=== PATIENT | female | born 1990 | race American Indian/Alaskan Native ===

== ENCOUNTER 2016-11-02 14:00 | Emergency (ER) | payer OTHER ==
--- NOTE | 2016-11-02 14:45 | Emergency Department Report ---
Entered by JOHN CARRASCO, acting as scribe for IBETH BACA NP. Chief Complaint: Abdominal Pain Stated Complaint: ABD PAIN Time Seen by Provider: 11/02/16 14:39 - HPI History of Present Illness: 26 year old female who is non toxic appearing and in no acute distress presents with c/o diffuse abdominal pain with associated N/V x 1 day. Emesis is food contents, non bilious, non bloody. Denies fever, epigastric pain, diarrhea, chest pain, shortness of breath. - ROS Review of Systems: Reports diffuse abdominal pain, N/V. Denies fever, epigastric pain, diarrhea, blood present in emesis, chest pain, SOB. - Exam Vital Signs: Vital Signs 11/02/16 14:08 Temperature 99.8 F H Pulse Rate 108 H Respiratory 18 Rate Blood Pressure 145/90 O2 Sat by Pulse 100 Oximetry Physical Exam: Constitutional: Non toxic appearing, NAD. Patient is actively vomiting in exam room. Emesis consists of food contents, no blood. Abdomen: Abdomen is non-distended, soft with diffuse abdominal tenderness to palpation. MSE screening note: Focused history and physical exam performed. Due to findings the following was ordered: CBC, CMP, lipase, amylase, UA, serum HCG qualitative ED Disposition for MSE Condition: Stable Instructions: Abdominal Pain (ED) This documentation as recorded by the scribe,JOHN CARRASCO,accurately reflects the service I personally performed and the decisions made by KEVEN chapa MARTIN, NP.
[2016-11-02 15:16] LABS: Hematocrit 41.8 % (30.3-42.9); Hemoglobin 13.8 gm/dl (10.1-14.3); Mean Corpuscular HGB Conc 33 % (30-34); Mean Corpuscular Hemoglobin 34 pg (28-32); Mean Corpuscular Volume 102 fl (79-97); Red Blood Count 4.09 M/mm3 (3.65-5.03); Red Cell Distribution Width 15.5 % (13.2-15.2); White Blood Count 13.2 K/mm3 (4.5-11.0)
[2016-11-02 15:39] LABS: Alanine Aminotransferase 89 units/L (7-56); Albumin 3.4 g/dL (3.9-5); Albumin/Globulin Ratio 0.9 %; Alkaline Phosphatase 199 units/L (35-129); Amylase 64 units/L (27-131); Anion Gap 18 mmol/L; BUN/Creatinine Ratio 16.66; Blood Urea Nitrogen 10 mg/dL (7-17); Calcium 8.7 mg/dL (8.4-10.2); Carbon Dioxide 20 mmol/L (22-30); Chloride 103.4 mmol/L (98-107); Glucose 84 mg/dL (65-100); Lipase 21 units/L (13-60); Potassium 4.2 mmol/L (3.6-5.0); Sodium 137 mmol/L (137-145); Total Protein 7.1 g/dL (6.3-8.2)
[2016-11-02] MEDS ORDERED: ZOFRAN ODT PO ONE (16:29)
[2016-11-02 16:42] LABS: Basophils % (Manual) 0 % (0.0-1.8); Blastocytes % (Manual) 0 %; Eosinophils % (Manual) 0 % (0.0-4.3); Total Cells Counted Percent 0
[2016-11-02 16:43] LABS: Platelet Estimate Appears Decreased
[2016-11-02 16:44] LABS: Anisocytosis Few; Diff Status Complete; Platelet Count 66 K/mm3 (140-440); Poikilocytosis Few; Target Cells Rare
--- NOTE | 2016-11-02 21:04 | Admit Criteria Form ---
Admission Criteria Documentation: FEBRILE ILLNESS, WITHOUT FOCAL INFECTION Clinical Indications for Admission to Inpatient Care (Place 'X' for any and all applicable criteria): Admission is indicated for ANY ONE of the following (1)(2)(3): [ ] I. Bacteremia [ ]II. Suspected or identified specific infection requiring hospitalization (eg, meningitis, endocarditis) [ ]III. Hemodynamic instability [ ]IV. Altered mental status [ ]V. Failure or unavailability of outpatient antimicrobial treatment [ ]. Hypoxemia [ ]VII. Seizures [ ]VIII. High-risk febrile neutropenia [ ]IX. Need for parenteral antibiotic in patient who is likely to abuse vascular access device (eg, injection drug user) [A](7) [ ]X. Temperature greater than 104.9 degrees F (40.5 degrees C) (oral) [X ]XI. Inpatient admission required rather than observation care because of ANY ONE of the following: [ ]a) Specific infection identified that is too severe for outpatient treatment or observation care trial [ ]b) Metabolic disorder (eg, hypoglycemia, hyperglycemia, metabolic acidosis) that is severe or persistent [ ]c) Temperature greater than 103.1 degrees F (39.5 degrees C) ( oral) that is not responsive to observation care treatment [ ]d) IV fluid to replace significant ongoing (eg, for over 24 hours) losses (> 3 L/m2 per day) [ ]e) Supplemental oxygen or respiratory treatments for over 24 hours that is performable only in acute inpatient setting [ ]f) Parenteral nutrition regimen need that must be implemented on inpatient basis [ ]g) Strict or protective (eg, laminar flow) isolation [ X]h) Other condition, treatment or monitoring requiring inpatient admission Extended stay beyond goal length of stay may be needed for(1)(3) [ ]a) Sepsis or septic shock(22) [ ]b) Positive blood cultures [ ]c) Insufficient oral intake [ ]d) High-risk febrile neutropenia(29)(30) [ ]e) Continued fever and clinical instability [ ]f) Clinically active comorbid illness (e.g,heart failure, renal failure , diabetes) The original [employer] [employer] content created by [facility] [employer] has been revised. The portions of the content which have been revised are identified through the use of italic text or in bold, and [facility] [employer] has neither reviewed nor approved the modified material. All other unmodified content is copyright [facility]. Please see references footnoted in the original [facility] edition 2016
[2016-11-02 21:12] LABS: Bacteria,Urine 4+ /HPF (Negative); Bilirubin,Urine NEG (Negative); Blood,Urine NEG (Negative); Ketones,Urine NEG (Negative); Leukocyte Esterase,Urine TR (Negative); Mucus,Urine 3+ /HPF; Nitrite,Urine NEG (Negative)
[2016-11-02] MEDS ORDERED: DUONEB 0.5 MG-3 MG/3 ML SOLN IH ONE (21:39)
[2016-11-02] MEDS ORDERED: MORPHINE IV ONE (21:39)
[2016-11-02] MEDS ORDERED: TORADOL IV ONE (22:09)
--- NOTE | 2016-11-02 22:10 | Emergency Department Report ---
HPI - General Chief Complaint: Abdominal Pain Time Seen by Provider: 11/02/16 20:36 - HPI HPI: This is a 18-year-old Afro-Indian female who presents to the emergency department via EMS from home with complaint of a one-day history of generalized abdominal pain, pelvic pain, nausea or vomiting, generalized body aches, chills and subjective fever. She is not taken anything for symptoms prior to presentation. No recent travel or sick contacts at home. She has a past medical history of HPV and hepatitis C. She does not currently have a primary care doctor. She denies any vaginal discharge, vaginal bleeding, dysuria or rash. ED Past Medical Hx - Past Medical History Hx Asthma: Yes Additional medical history: morbid obesity,allergies,HPV,hepatitis C - Surgical History Past Surgical History?: No - Social History Smoking Status: Never Smoker Substance Use Type: None - Medications Home Medications: Home Medications Medication Instructions Recorded Confirmed Last Taken Type ALBUTEROL NEB's [Proventil 0.083% 1 vial INHALATION PRN PRN 11/02/16 11/02/16 History NEBS] Albuterol Sulfate [Ventolin HFA] 1 puff PO PRN PRN 11/02/16 11/02/16 11/02/16 History Fluticasone/Salmeterol [Advair 1 puff PO PRN PRN 11/02/16 11/02/16 Unknown History Diskus 250-50 mcg] Loratadine [Claritin] 1 tab PO QDAY PRN 11/02/16 11/02/16 11/02/16 History Montelukast [Singulair] 1 tbsp PO QDAY 11/02/16 11/02/16 11/02/16 History Levofloxacin [Levaquin] 750 mg PO QDAY #7 tablet 11/03/16 Unknown Rx metroNIDAZOLE [Flagyl] 500 mg PO Q12HR #14 tab 11/03/16 Unknown Rx traMADol [Ultram] 50 mg PO Q6HR PRN #16 tablet 11/03/16 Unknown Rx ED Review of Systems ROS: Stated complaint: ABD PAIN Other details as noted in HPI Comment: All other systems reviewed and negative Constitutional: chills, fever Eyes: denies: eye pain, eye discharge, vision change ENT: denies: ear pain, throat pain Respiratory: shortness of breath. denies: cough Cardiovascular: denies: chest pain, palpitations Gastrointestinal: abdominal pain, nausea, vomiting Genitourinary: denies: urgency, dysuria, discharge Musculoskeletal: back pain, myalgia Skin: denies: rash, lesions Neurological: denies: weakness, numbness Physical Exam - Physical Exam Vital Signs: Vital Signs 11/02/16 11/02/16 11/02/16 14:08 19:35 20:53 Temperature 99.8 F H 100.6 F H 100.8 F H Pulse Rate 108 H 110 H 81 Respiratory 18 18 18 Rate Blood Pressure 145/90 150/95 Blood Pressure 118/64 [Left] O2 Sat by Pulse 100 99 98 Oximetry Physical Exam: GENERAL: The patient is well-developed well-nourished. She is uncomfortable but in no acute distress. HEENT: Normocephalic. Atraumatic. Extraocular motions are intact. Patient has moist mucous membranes. Pupils equal reactive to light bilaterally. NECK: Supple. Trachea is midline. CHEST/LUNGS: Clear to auscultation. There is no respiratory distress noted. HEART/CARDIOVASCULAR: Regular. There is no tachycardia. There is no gallop rub or murmur. ABDOMEN: Abdomen is soft. There is generalized tenderness to palpation of the abdomen. No guarding or rebound tenderness. No peritoneal signs with heel stike. Morbid obesity. Patient has normal bowel sounds. There is no abdominal distention. SKIN: Skin is warm and dry. NEURO: The patient is awake but is not cooperative and remains nonverbal. The patient has no focal neurologic deficits. Normal speech. MUSCULOSKELETAL: There is no tenderness or deformity. There is no limitation range of motion. There is no evidence of acute injury. ED Course Vital Signs 11/02/16 11/02/16 11/02/16 14:08 19:35 20:53 Temperature 99.8 F H 100.6 F H 100.8 F H Pulse Rate 108 H 110 H 81 Respiratory 18 18 18 Rate Blood Pressure 145/90 150/95 Blood Pressure 118/64 [Left] O2 Sat by Pulse 100 99 98 Oximetry ED Medical Decision Making - Lab Data Result diagrams: 11/02/16 15:02 11/02/16 15:02 - Radiology Data Radiology results: report reviewed, image reviewed interpreted by me: Chest x-ray did not show any acute process. Heart is normal shape and size. No effusions. No pneumothorax. No signs of pneumonia seen. CT of the abdomen and pelvis with IV contrast shows cirrhotic changes of the liver. No focal hepatic lesion. Mild enlargement of liver and spleen. Multiple collateral vessels in the upper abdomen. Borderline enlarged lymph nodes in the upper abdomen which may be reactive secondary to cirrhosis. Cholelithiasis. Moderate gallbladder wall thickening which may be reactive secondary to cirrhosis. Inflammation of gallbladder cannot be excluded. No biliary dilation. Wall thickening of the right colon, transverse colon and ascending colon concerning for colitis. No bowel obstruction. - Medical Decision Making 26-year-old female presents the emergency department with complaint of generalized abdominal discomfort, nausea, vomiting. Patient has a history of hepatitis C. She was given some pain medication and IV fluid resuscitation. Her labs show some elevation in the LFTs and bilirubin. She presents with a low -grade fever. 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 A CT of the abdomen and pelvis was done with IV contrast that shows cirrhosis, cholelithiasis without cholecystitis and some colitis. She was given some Levaquin and Flagyl by IV. The CT also read as a bladder wall thickening and some enlargement of the gallbladder that is most likely secondary to her cirrhosis. However a right upper quadrant dedicated ultrasound will be done to make sure that there is not cholecystitis. The patient is discharged home. She is set up with a referral for gastroenterology , pain medication, antibiotics. She understands to return to the emergency department if there is any intractable abdominal pain, intractable fever or vomiting or any acute distress. The ultrasound be checked by my colleague, Dr Gallo, and if no surgical intervention is necessary she will be discharged home as planned. - Differential Diagnosis Colitis, Cholelithiasis, Cholecystitis, Hepatitis, pancreatitis Critical Care Time: No Critical care attestation.: If time is entered above; I have spent that time in minutes in the direct care of this critically ill patient, excluding procedure time. ED Disposition Clinical Impression: Colitis, Biliary colic Cirrhosis Qualifiers: Hepatic cirrhosis type: unspecified hepatic cirrhosis Ascites presence: without ascites Qualified Code(s): K74.60 - Unspecified cirrhosis of liver Cholelithiasis Qualifiers: Cholelithiasis location: gallbladder Cholecystitis presence: without cholecystitis Biliary obstruction: without biliary obstruction Qualified Code(s) : K80.20 - Calculus of gallbladder without cholecystitis without obstruction Abdominal pain Qualifiers: Abdominal location: generalized Qualified Code(s): R10.84 - Generalized abdominal pain Disposition: DISCHARGED TO HOME OR SELFCARE Is pt being admited?: No Condition: Stable Additional Instructions: Please follow-up with a primary care doctor as soon as possible. It is also recommended that she follow-up with a communications technician or a garment parts cutter hand as soon as possible. Return to the emergency department with any worsening of your symptoms or any acute distress. You've been prescribed a medication that is sedating. Therefore this medication cannot be mixed with alcohol, or taken prior to driving, working, or being responsible for children. One of the antibiotics that you have been written for, Flagyl, has a very bad reaction with alcohol. If you drink any alcohol while taking this medication you have significant nausea, vomiting and discomfort. Prescriptions: Levofloxacin [Levaquin] 750 mg PO QDAY #7 tablet metroNIDAZOLE [Flagyl] 500 mg PO Q12HR #14 tab traMADol [Ultram] 50 mg PO Q6HR PRN #16 tablet PRN Reason: Pain Referrals: PRIMARY MD GITA [Primary Care Provider] - 3-5 Days DYLAN NDIAYE MD [Staff Physician] - 3-5 Days Forms: Work/School Release Form(ED)
[2016-11-03] MEDS ORDERED: NACL ONE (00:03)
--- NOTE | 2016-11-03 02:13 | Cat Scan Report ---
FINAL REPORT EXAM: CT ABDOMEN PELVIS W CON HISTORY: abd pain COMPARISON: None available. Additional sagittal and coronal reformatted images were obtained. TECHNIQUE: Contiguous axial images were obtained. 100 cc Omnipaque [id number]. Administration of IV contrast given per institution protocol. Images submitted for interpretation. Additional sagittal and coronal reformatted images were obtained. FINDINGS: Nonspecific linear densities at the lung bases likely reflecting atelectasis. Minimal edema cannot be excluded. Cirrhotic changes of the liver. Nodular contour of the liver. Liver is enlarged measuring 25 centimeters. Dilatation of the portal vein which is patent measuring 1.5 centimeters in diameter. Cholelithiasis. Wall thickening of the gallbladder. This may be reactive secondary to cirrhosis. Inflammation of gallbladder cannot be excluded. No biliary dilatation. Mild enlargement of spleen measuring 14 centimeters. Pancreas and adrenal glands are grossly unremarkable. There are collateral vessels within upper abdomen. Borderline enlarged upper abdominal lymph nodes suspected to be reactive. . No solid renal lesion. No hydronephrosis. Aorta and IVC normal in caliber. Urinary bladder, uterus, ovaries are grossly unremarkable. Small amount of free fluid in the pelvis. No loculated collection or free air. Several fluid-filled small bowel loops. Diffuse wall thickening of the majority the colon with sparing of the rectosigmoid colon concerning for colitis. Bony pelvis and lumbar spine are grossly intact. The appendix is not visualized IMPRESSION: Cirrhotic changes of the liver. No focal hepatic lesion. Mild enlargement of the liver and spleen. Multiple collateral vessels in the upper abdomen. Borderline enlarged lymph nodes in the upper abdomen which may be reactive secondary to cirrhosis. Cholelithiasis. Moderate gallbladder wall thickening which may be reactive secondary to cirrhosis. Inflammation of gallbladder cannot be excluded. No biliary dilatation. Wall thickening of the right colon, transverse colon descending colon concerning for colitis. No bowel obstruction.
[2016-11-03] MEDS ORDERED: MORPHINE IV ONE (02:23)
[2016-11-03] MEDS ORDERED: LEVAQUIN 750MG/150ML 750 MG/150 ML BAG IV ONE (02:31)
[2016-11-03] MEDS ORDERED: FLAGYL 500 MG/100 ML 500 MG/100 ML BAG IV ONE (03:00)
--- NOTE | 2016-11-03 03:25 | Ultrasound Report ---
FINAL REPORT EXAM: US ABDOMEN LIMITED HISTORY: abd pain COMPARISON: CT of the abdomen and pelvis from the same date. TECHNIQUE: Several real-time grayscale and color Doppler images were obtained. FINDINGS: Nodular contour of the liver compatible cirrhosis seen on earlier CT. No focal hepatic lesion is demonstrated. Right kidney measures 10.5 centimeters in length. No hydronephrosis. Cholelithiasis. Gallbladder wall thickening. Small amount of pericholecystic fluid. Gallbladder wall thickness 10 millimeters. No biliary dilatation. Common bile duct measures 5 millimeters. IMPRESSION: Cholelithiasis with gallbladder wall thickening concerning for acute cholecystitis in the correct clinical setting. No biliary dilatation. Cirrhotic changes of the liver.
[2016-11-03 03:37] VITALS: BP 116/63
--- NOTE | 2016-11-03 05:37 | Emergency Department Report ---
HPI - General Chief Complaint: Abdominal Pain Time Seen by Provider: 11/02/16 20:36 ED Past Medical Hx - Past Medical History Hx Asthma: Yes Additional medical history: morbid obesity,allergies,HPV,hepatitis C - Surgical History Past Surgical History?: No - Social History Smoking Status: Never Smoker Substance Use Type: None - Medications Home Medications: Home Medications Medication Instructions Recorded Confirmed Last Taken Type ALBUTEROL NEB's [Proventil 0.083% 1 vial INHALATION PRN PRN 11/02/16 11/02/16 History NEBS] Albuterol Sulfate [Ventolin HFA] 1 puff PO PRN PRN 11/02/16 11/02/16 11/02/16 History Fluticasone/Salmeterol [Advair 1 puff PO PRN PRN 11/02/16 11/02/16 Unknown History Diskus 250-50 mcg] Loratadine [Claritin] 1 tab PO QDAY PRN 11/02/16 11/02/16 11/02/16 History Montelukast [Singulair] 1 tbsp PO QDAY 11/02/16 11/02/16 11/02/16 History Levofloxacin [Levaquin] 750 mg PO QDAY #7 tablet 11/03/16 Unknown Rx metroNIDAZOLE [Flagyl] 500 mg PO Q12HR #14 tab 11/03/16 Unknown Rx traMADol [Ultram] 50 mg PO Q6HR PRN #16 tablet 11/03/16 Unknown Rx ED Review of Systems ROS: Stated complaint: ABD PAIN Other details as noted in HPI Constitutional: chills, fever Eyes: denies: eye pain, eye discharge, vision change ENT: denies: ear pain, throat pain Respiratory: shortness of breath. denies: cough Cardiovascular: denies: chest pain, palpitations Gastrointestinal: abdominal pain, nausea, vomiting Genitourinary: denies: urgency, dysuria, discharge Musculoskeletal: back pain, myalgia Skin: denies: rash, lesions Neurological: denies: weakness, numbness Physical Exam - Physical Exam Vital Signs: Vital Signs 11/02/16 11/02/16 11/02/16 14:08 19:35 20:53 Temperature 99.8 F H 100.6 F H 100.8 F H Pulse Rate 108 H 110 H 81 Pulse Rate [ Anterior Bilateral Throughout] Respiratory 18 18 18 Rate Respiratory Rate [Anterior Bilateral Throughout] Blood Pressure 145/90 150/95 Blood Pressure 118/64 [Left] O2 Sat by Pulse 100 99 98 Oximetry 11/02/16 11/02/16 11/03/16 22:38 22:48 03:37 Temperature 98.8 F Pulse Rate 98 H Pulse Rate [ 82 81 Anterior Bilateral Throughout] Respiratory 18 Rate Respiratory 18 16 Rate [Anterior Bilateral Throughout] Blood Pressure Blood Pressure 116/63 [Left] O2 Sat by Pulse 100 Oximetry ED Course Vital Signs 11/02/16 11/02/16 11/02/16 14:08 19:35 20:53 Temperature 99.8 F H 100.6 F H 100.8 F H Pulse Rate 108 H 110 H 81 Pulse Rate [ Anterior Bilateral Throughout] Respiratory 18 18 18 Rate Respiratory Rate [Anterior Bilateral Throughout] Blood Pressure 145/90 150/95 Blood Pressure 118/64 [Left] O2 Sat by Pulse 100 99 98 Oximetry 11/02/16 11/02/16 11/03/16 22:38 22:48 03:37 Temperature 98.8 F Pulse Rate 98 H Pulse Rate [ 82 81 Anterior Bilateral Throughout] Respiratory 18 Rate Respiratory 18 16 Rate [Anterior Bilateral Throughout] Blood Pressure Blood Pressure 116/63 [Left] O2 Sat by Pulse 100 Oximetry - Reevaluation(s) Reevaluation #1: 11/03/16 05:34 I was asked to follow up on ultrasound report for this patient. Ultrasound does demonstrate cholelithiasis with gallbladder wall thickening concerning for possibility of acute cholecystitis in a common bile duct measures 5 mm. There is no biliary tree dilatation. I did review the lab studies demonstrating elevated EL TST as well as elevated bilirubin. Patient abdominal examinations demonstrate still some moderate tenderness and fairly diffuse pattern on the upper abdomen. It is definitely not a classic presentation for cholecystitis. Patient has had an attack similar to this in the past. I do suspect this is representing biliary colic with the elevated bilirubin as it is. CT ultrasound findings would correlate with this as well. I did indicate to the patient that she would like we would be happy to bring her Hospital for admission for cholecystectomy. She indicates that the timing is just not good right now and she would rather go home and set this up as an outpatient. I do not feel that she is any great danger of doing it this way is not term white blood cell count is normal. She seems to have resolved to a large degree with her pain. She does not have a common bile duct stone. She does not have an obstructive process acutely going on based on ultrasound study tonight. I suspect again she did have biliary colic again causing her pain and discomforts tonight. She's been given the name of the surgeon to arrange for elective cholecystectomy. She's been given routine mornings as well. She does agree to return if she has any acute worsening develops fevers or persistent nausea and vomiting. ED Medical Decision Making - Lab Data Result diagrams: 11/02/16 15:02 11/02/16 15:02 Critical care attestation.: If time is entered above; I have spent that time in minutes in the direct care of this critically ill patient, excluding procedure time. ED Disposition Clinical Impression: Biliary colic Disposition: DISCHARGED TO HOME OR SELFCARE Is pt being admited?: No Condition: Stable Additional Instructions: Please follow-up with a primary care doctor as soon as possible. It is also recommended that she follow-up with a ceramics technician or a belt press operator as soon as possible. Return to the emergency department with any worsening of your symptoms or any acute distress. You've been prescribed a medication that is sedating. Therefore this medication cannot be mixed with alcohol, or taken prior to driving, working, or being responsible for children. One of the antibiotics that you have been written for, Flagyl, has a very bad reaction with alcohol. If you drink any alcohol while taking this medication you have significant nausea, vomiting and discomfort. Prescriptions: Levofloxacin [Levaquin] 750 mg PO QDAY #7 tablet metroNIDAZOLE [Flagyl] 500 mg PO Q12HR #14 tab traMADol [Ultram] 50 mg PO Q6HR PRN #16 tablet PRN Reason: Pain Referrals: PRIMARY MD GITA [Primary Care Provider] - 3-5 Days DYLAN NDIAYE MD [Staff Physician] - 3-5 Days Forms: Work/School Release Form(ED)
--- NOTE | 2016-11-03 07:36 | XRay Report ---
PORTABLE CHEST: Cough An AP portable view of the chest demonstrates a normal cardiac contour considering the limits of this technique. The lungs are clear with no evidence of infiltrate, fluid or failure. IMPRESSION: Normal portable chest.
== END 2016-11-03 04:00 | disposition home or self-care (01) ==
LOC: ED 14:00
DX: K80.50 Calculus of bile duct without cholangitis or cholecystitis without obstruction (principal); J45.909 Unspecified asthma, uncomplicated; E66.01 Morbid (severe) obesity due to excess calories
CPT/HCPCS: 36415; 71010; 74177; 76705; 80053; 81001; 82150; 83690; 84703; 85007; 85025; 94640; 96365; 96367; 96375; 96376; 99285; J1885; J1956; J2270; Q9967; Q0162